=== PATIENT | male | born 1960 | race Caucasian/White ===

== ENCOUNTER 2024-05-26 10:05 | Outpatient (CLI) | payer OTHER | END 2024-05-26 10:06 | disposition home or self-care (01) | LOC: SCSRAD 10:05 | PROVIDERS: ATTEND Physician Assistant Surgical | DX: M54.50 Low back pain, unspecified (principal); M48.062 Spinal stenosis, lumbar region with neurogenic claudication; M47.816 Spondylosis without myelopathy or radiculopathy, lumbar region; M43.16 Spondylolisthesis, lumbar region | CPT/HCPCS: 72100 ==

== ENCOUNTER 2024-08-12 11:30 | Inpatient (IN) | payer BC ==
[2024-08-12 12:01] VITALS: BMI 25.4
[2024-08-16] MEDS ORDERED: EPINEPHrine 1 MG/ML VIAL ONE (06:08)
[2024-08-16] MEDS ORDERED: Vancomycin 1 GM VIAL ONE (06:08)
[2024-08-16] MEDS ORDERED: Thrombin 5000 UNITS/5 ML VIAL ONE (06:09)
[2024-08-16] MEDS ORDERED: Bupivacaine PF 0.5% 30 ML VIAL ONE (06:09)
[2024-08-16] MEDS ORDERED: CEFAZOLIN 2 GM VIAL ONE (06:25)
[2024-08-16] MEDS ORDERED: Mag-Al 1200 mg/1200 mg/30 ML UDCUP PO PRN (06:40)
[2024-08-16] MEDS ORDERED: Ondansetron PF 4 MG/2 ML Vial IVP PRN (06:40)
[2024-08-16] MEDS ORDERED: Milk Of Magnesia 30 ML UDCUP PO PRN (06:40)
[2024-08-16] MEDS ORDERED: HYDROcodone/Acetaminophen 7.5/325 mg Tablet PO PRN (06:40)
[2024-08-16] MEDS ORDERED: diphenhydrAMINE 50 MG/ML VIAL IVP PRN (06:40)
[2024-08-16] MEDS ORDERED: Midazolam HCl 2 mg/2 ml Vial ONE (06:46)
[2024-08-16] MEDS ORDERED: PROPOFOL 20 ML ONE ×2 (06:46→07:40)
[2024-08-16] MEDS ORDERED: Fentanyl 250 MCG/5 ML VIAL ONE (06:46)
[2024-08-16] MEDS ORDERED: Rocuronium Bromide 10 MG/ML (10ML VIAL) ONE ×2 (06:47→09:55)
[2024-08-16] MEDS ORDERED: Lidocaine 2% PF 5 ML VIAL ONE (06:47)
[2024-08-16] MEDS ORDERED: Dexamethasone 20 MG/5 ML VIAL ONE (07:20)
[2024-08-16] MEDS ORDERED: SUGAMMADEX SODIUM 200 MG/2 ML VIAL ONE (07:41)
[2024-08-16] MEDS ORDERED: Ondansetron PF 4 MG/2 ML Vial ONE (07:41)
[2024-08-16] MEDS ORDERED: PHENYLEPHRINE-NS 100 MCG/ML 10 ML SYRINGE ONE (08:06)
[2024-08-16] MEDS ORDERED: Phenylephrine 40 MG/NS 250 ML 250 ML ONE (08:17)
[2024-08-16] MEDS ORDERED: Non-Formulary Item 1 EACH (Olmesartan Medoxomil [Olmesartan Medoxomil] 20 MG Tablet) PO SCH (09:00)
[2024-08-16] MEDS ORDERED: Albumin 5% 500 ML ONE (10:19)
[2024-08-16] MEDS ORDERED: CEFAZOLIN 1 GM VIAL ONE (10:29)
[2024-08-16] MEDS ORDERED: HYDROmorphone 2 MG/ML VIAL ONE (12:13)
[2024-08-16] MEDS: Losartan 25 MG TAB PO SCH (14:36)
[2024-08-16] MEDS: Pantoprazole 40 MG DR.TAB PO SCH (14:36)
[2024-08-16] MEDS: Sodium Chloride 0.9% 1,000 ML IV SCH (15:21)
[2024-08-16] MEDS: HYDROcodone/Acetaminophen 10/325 mg Tablet PO PRN (15:22)
[2024-08-16] MEDS: CEFAZOLIN 2 GM in Sodium Chloride 0.9% 100 ML IVPB SCH (15:22)
[2024-08-16] MEDS: Morphine 2 MG/ML VIAL SLOW IVP PRN (18:40)
[2024-08-16] MEDS: Acetaminophen/Codeine 30-300mg Tablet PO PRN (21:40)
[2024-08-17] MEDS: Tamsulosin HCl 0.4 MG CAP PO SCH (06:26)
[2024-08-17 06:37] LABS: Chloride 105 mmol/L (98-107); Potassium 4.8 mmol/L (3.5-5.1); Sodium 138 mmol/L (136-145)
[2024-08-17 06:38] LABS: Calcium 8.7 mg/dL (7.8-10.44); Glucose 105 mg/dL (80-115)
[2024-08-17 06:40] LABS: Anion Gap 12 mmol/L (10-20); Carbon Dioxide 26 mmol/L (23-31)
[2024-08-17 06:42] LABS: BUN (Urea Nitrogen) 14 mg/dL (8.4-25.7); Calc. Creatinine Clearance 117 mL/min (70-130); Estimated GFR 100
[2024-08-17 07:44] LABS: Band 4 % (5-11); Lymphocytes 13 % (21-51); Monocytes 7 % (0-10); Neutrophil 75 % (42-75); Platelet Adequacy Comment Platelets Decreased; RBC Morphology Within Normal Limits; Reactive Lymphocytes 1 % (0-10); Smudge Cells 20.2 %
[2024-08-17 08:19] LABS: Hematocrit 32.1 % (42.0-52.0); Hemoglobin 11.1 g/dL (14.0-18.0); Mean Corpuscular HGB CONC 34.6 g/dL (32.0-36.0); Mean Corpuscular Hemoglobin 33.4 pg (27.0-31.0); Mean Corpuscular Volume 96.7 fL (78.0-98.0); Mean Platelet Volume 9.6 fL (7.4-10.4); Platelet Count 88 10x3/uL (130-400); Red Blood Cell (RBC) Count 3.32 mill/uL (4.70-6.10)
[2024-08-17] MEDS: tiZANidine HCl 4 MG TAB PO PRN (08:29)
[2024-08-17 13:36] VITALS: BP 94/62; TEMP 97.6
== END 2024-08-17 16:50 | disposition home or self-care (01) | DRG 451 ==
LOC: SURG A 08-16 05:47 → SURG B 08-16 13:37
PROVIDERS: ADMIT Neurological Surgery; ATTEND Neurological Surgery
PROC: 0SG00AJ Fusion of Lumbar Vertebral Joint with Interbody Fusion Device, Posterior Approach, Anterior Column, Open Approach (ICD-10-PCS; principal; 2024-08-16)
PROC: 01NB0ZZ Release Lumbar Nerve, Open Approach (ICD-10-PCS; 2024-08-16)
PROC: 0SB20ZZ Excision of Lumbar Vertebral Disc, Open Approach (ICD-10-PCS; 2024-08-16)
PROC: 3E033XZ Introduction of Vasopressor into Peripheral Vein, Percutaneous Approach (ICD-10-PCS; 2024-08-16)
PROC: 30233J1 Transfusion of Nonautologous Serum Albumin into Peripheral Vein, Percutaneous Approach (ICD-10-PCS; 2024-08-16)
DX: M48.062 Spinal stenosis, lumbar region with neurogenic claudication (principal); M43.16 Spondylolisthesis, lumbar region; I10 Essential (primary) hypertension
CPT/HCPCS: 36415; 80048; 85025; A4314; C1713; C1889; J0171; J0665; J0690; J1100; J1171; J2250; J2272; J2405; J2704; J3010; J3370; J7030; P9045